=== PATIENT | male | born 1995 | race Hispanic/Latino ===

== ENCOUNTER 2018-07-20 15:41 | Emergency (ER) | payer BC ==
[2018-07-20 15:49] VITALS: TEMP 98.9; O2SAT 100
--- NOTE | 2018-07-20 16:54 | ED PDOC ---
HPI: Eye Injury/Pain Time Seen by Provider: 07/20/18 15:51 Chief Complaint (Nursing): Eye Problem Chief Complaint (Provider): Eye Problem History Per: Patient History/Exam Limitations: no limitations Onset/Duration Of Symptoms: Days (x 2 weeks) Current Symptoms Are (Timing): Still Present Quality: "Pain" Associated Symptoms: Other (redness) Additional Complaint(s): 23 year old male with no past medical history presents to the ED with bilateral eye pain and redness for the last two weeks, worse in the right eye. Pain is ranked as 7/10. Patient was seen by [facility] twice, diagnosed with conjunctivitis and given antibiotic eye drops. Patient then followed up with farm implement mechanic, Dr. Bravo, twice in the last three days. His eyes were stained and he was informed that he had no corneal issues. Patient is currently taking doxycycline PO, Polytrim eye drops and tobramycin with steroid eye drops. Medications prov ana no relief or improvement. He reports mild pain in both eyes and intermittent blurred vision in the right eye. Patient states that when he awakes, his eyes are crusted shut and improve during the course of the day. Additionally, he was in [place] two weeks ago with a friend who had similar symptoms. Denies headache and dizziness. Tetanus UTD. Past Medical History Reviewed: Historical Data, Nursing Documentation, Vital Signs Vital Signs: Last Vital Signs Temp 98.9 F 07/20/18 15:46 Pulse 53 L 07/20/18 15:46 Resp 19 07/20/18 15:46 BP 117/73 07/20/18 15:46 Pulse Ox 100 07/20/18 15:46 - Medical History PMH: No Chronic Diseases - Surgical History Surgical History: No Surg Hx - Family History Family History: States: Unknown Family Hx - Social History Current smoker - smoking cessation education provided: No - Allergies Allergies/Adverse Reactions: Allergies Allergy/AdvReac Type Severity Reaction Status Date / Time No Known Allergies Allergy Verified 07/20/18 15:49 Review of Systems ROS Statement: Except As Marked, All Systems Reviewed And Found Negative Constitutional: Negative for: Fever Eyes: Positive for: Pain (bilaterally ), Vision Change (blurred vision in right eye), Redness Physical Exam - Reviewed Nursing Documentation Reviewed: Yes Vital Signs Reviewed: Yes - Physical Exam Comments: GENERAL APPEARANCE: Patient is awake, alert, oriented x 3, in no acute distress. HEENT: (-) facial swelling and erythema, (-) facial blisters. VISUAL ACUITIES: Left eye: 20/ 20; Right eye: 20/ 30; Both: 20/20. LIDS & LASHES: Normal. (-) crusting PUPILS: Pupils equally round and reactive. EOM's: Intact and painless. LID EVERSION: (-) foreign body. CONJUNCTIVAE: (+) bilateral conjunctival injection, right eye > left eye. (+) mild chemosis to right conjunctiva ANTERIOR CHAMBER: (-) hyphema. FLUORESCEIN: Exam not performed because patient has had stain performed twice in last three days. RESPIRATORY: lungs clear to auscultation bilaterally, respirations even and nonlabored. CARDIAC: (-) irregularity NECK: Supple, FROM - ECG O2 Sat by Pulse Oximetry: 100 (RA) Pulse Ox Interpretation: Normal Medical Decision Making Medical Decision Makin Clinical Impression: conjunctivitis, likely viral Initial Plan: Consult Dr. Justice, [facility] head tennis professional. Visual Acuity Re-evaluation 16:[address] Justice. States that patient more than likely has viral conjunctivitis - Suspicion for Epidemic Keratoconjunctivitis. States that he will see patient tomorrow in office at 9am and that patient can be discharged without further intervention in the ED. Lab/Diagnostic results d/w the patient in great detail. Diagnosis of bilateral eye irritation and redness, likely viral conjunctivitis d/w the patient. Based on history, exam and diagnostic results, plan will be for outpatient follow up with [facility] tomorrow as directed. Patient instructed to follow-up with pmd / referral provided / the clinic in 1- 2 days without fail. Return to the emergency room at any time for any new or worsening symptoms. Patient states he fully agrees with and understands discharge instructions. States that he agrees with the plan and disposition. Verbalized and repeated discharge instructions and plan. I have given the patient opportunity to ask any additional questions. Scribe Attestation: Documented by Dagmar Nguyễn, acting as a scribe for Aidee Romo PA-C Provider Scribe Attestation: All medical record entries made by the Scribe were at my direction and personally dictated by me. I have reviewed the chart and agree that the record accurately reflects my personal performance of the history, physical exam, medical decision making, and the department course for this patient. I have also personally directed, reviewed, and agree with the discharge instructions and disposition. Disposition - Clinical Impression Clinical Impression: Irritation of eye, Redness of both eyes, Viral conjunctivitis of both eyes - Patient ED Disposition Is Patient to be Admitted: No Counseled Patient/Family Regarding: Studies Performed, Diagnosis, Need For Followup - Disposition Referrals: Skyler Justice MD [Staff Provider] - Disposition: Routine/Home Disposition Time: 17:00 Condition: STABLE Additional Instructions: FOLLOW UP WITH DR JUSTICE TOMORROW IN HIS OFFICE AT 9AM. The emergency medical care you received today was directed at your acute symptoms. If you were prescribed any medication, please fill it and take as directed. It may take several days for your symptoms to resolve. Return to the Emergency Department if your symptoms worsen, do not improve, or if you have any other problems. Please contact your doctor in 2 days for re-evaluation and follow up / or call one of the physicians/clinics you have been referred to that are listed on the Patient Visit Information form that is included in your discharge packet. Bring any paperwork you were given at discharge with you along with any medications you are taking to your follow up visit. Our treatment cannot replace ongoing medical care by a primary care provider (PCP) outside of the emergency department. Instructions: Conjunctivitis ([place]), How to Care for Your Eyes, How to Use Eye Drops Forms: [employer] (Polish) Print Language: FRENCH - POA Present On Arrival: None
[2018-07-20 17:38] VITALS: BP 123/60; PULSE 64; RESP 20
== END 2018-07-20 17:37 | disposition home or self-care (01) ==
LOC: H.ER 15:41
DX: B30.9 Viral conjunctivitis, unspecified (principal); H57.89 Other specified disorders of eye and adnexa